=== PATIENT | female | born 1975 | race Caucasian/White ===

== ENCOUNTER 2021-02-16 16:13 | Inpatient (IN) ==
[2021-02-16 16:56] LABS: Basophils % 0.1 %; Eosinophils % 0.1 %; Hematocrit 18.8 % (35.3-44.9); Hemoglobin 6.2 g/dL (11.5-15.4); Immature Granulocytes % 0.7 % (0-4); Lymphocytes % 10.2 %; Mean Corpuscular Hemoglobin 34.4 pg (28.0-33.3); Mean Corpuscular Volume 104.4 fL (83.0-100.0); Mean Platelet Volume 10.6 fL (9.4-12.4); Monocytes # 0.8 K/mcL (0.0-1.3); Monocytes % 8.1 %; Platelet Count 154 K/mcL (140-400); Red Cell Distribution Width 16.8 % (11.5-14.5); Segmented Neutrophils % 80.8 %
[2021-02-16] MEDS ORDERED: Isovue-370 500 ML BOTTLE IVP ONE (17:05)
[2021-02-16 17:08] LABS: INR 1.4; Prothrombin Time 16.2 Seconds (9.4-12.1)
[2021-02-16 17:11] LABS: Activated Partial Thrombo Time 27.2 Seconds (26.0-36.0)
[2021-02-16 17:30] LABS: Hematocrit 17.5 % (35.3-44.9)
[2021-02-16 17:45] LABS: Alanine Aminotransferase 34 Units/L (7-52); Albumin 3.1 g/dL (3.5-5.7); Albumin/Globulin Ratio 1.1 (1.1-2.2); Alkaline Phosphatase 389 Units/L (34-104); Aspartate Amino Transferase 123 Units/L (13-39); BUN/Creatinine Ratio 9 (6-26); Bilirubin,Direct 5.1 mg/dL (0.0-0.2); Bilirubin,Indirect 3.8 mg/dL (0.0-1.0); Bilirubin,Total 8.9 mg/dL (0.3-1.0); Blood Urea Nitrogen 5 mg/dL (6-20); Calcium 8.5 mg/dL (8.6-10.3); Carbon Dioxide 23 mEq/L (23-29); Chloride 76 mEq/L (98-107); Globulin 2.8 g/dL (2.4-3.5); Glucose 95 mg/dL (70-105); Lipase 73 Units/L (11-82); Osmolality,Calculated 251 (280-300); Potassium 2.4 mEq/L (3.5-5.1); Sodium 122 mEq/L (136-145); Total Protein 5.9 g/dL (6.4-8.9); Troponin I < 0.03 ng/mL (< 0.04); eGFR For African Americans > 60 (> 60); eGFR For Non-African Americans > 60 (> 60)
[2021-02-16 17:48] LABS: Hemoglobin 5.9 g/dL (11.5-15.4)
[2021-02-16] MEDS ORDERED: Magnesium Sulfate 1 GM/102 ML PIGGYBACK IVPB ONE (17:48)
[2021-02-16] MEDS ORDERED: 0.9 % Sodium Chloride 500 ML IVC STA (17:49)
[2021-02-16] MEDS ORDERED: Ondansetron 4 MG/2 ML VIAL IVP ONE (18:05)
[2021-02-16] MEDS ORDERED: 0.9 % Sodium Chloride 250 ML ONE (18:38)
[2021-02-16] MEDS ORDERED: Ondansetron 4 MG/2 ML VIAL IVP PRN (21:04)
[2021-02-16] MEDS ORDERED: Naloxone 0.4 MG/ML INJ IVP PRN (21:04)
[2021-02-16] MEDS ORDERED: *HR* LORazepam 2 MG/ML VIAL IVP PRN ×2 (21:07)
[2021-02-16] MEDS ORDERED: *HR* OxyCODONE Immed Rel 5 MG TABLET PO PRN (21:08)
[2021-02-16] MEDS ORDERED: Ipratropium/Albuterol Neb 3 ML IH PRN (21:08)
[2021-02-16] MEDS ORDERED: *HR* Promethazine 25 MG/ML VIAL IM ONE (22:19)
[2021-02-16 23:16] LABS: Eosinophils % 0.3 %; Immature Granulocytes % 0.8 % (0-4); Red Blood Count 2.37 M/mcL (3.82-4.97)
[2021-02-16 23:18] LABS: Basophils % 0.4 %; Hematocrit 23.4 % (35.3-44.9); Hemoglobin 8.1 g/dL (11.5-15.4); Immature Platelets 9.3 % (1.1-6.1); Lymphocytes # 1.1 K/mcL (0.6-4.6); Lymphocytes % 14.3 %; Mean Corpuscular HGB Conc 34.6 g/dL (31.6-35.5); Mean Corpuscular Hemoglobin 34.2 pg (28.0-33.3); Mean Corpuscular Volume 98.7 fL (83.0-100.0); Mean Platelet Volume 10.8 fL (9.4-12.4); Monocytes # 0.5 K/mcL (0.0-1.3); Monocytes % 6.4 %; Platelet Count 122 K/mcL (140-400); Red Cell Distribution Width 18.3 % (11.5-14.5); Segmented Neutrophils % 77.8 %; White Blood Count 7.7 K/mcL (4.3-11.1)
[2021-02-16] MEDS ORDERED: Potassium Chloride 40 MEQ, Lidocaine 1% 2 ML in 0.9 % Sodium Chloride 500 ML IVPB ONE (23:27)
[2021-02-16 23:38] LABS: BUN/Creatinine Ratio 7 (6-26); Blood Urea Nitrogen 4 mg/dL (6-20); Calcium 8.4 mg/dL (8.6-10.3); Carbon Dioxide 26 mEq/L (23-29); Chloride 82 mEq/L (98-107); Glucose 85 mg/dL (70-105); Osmolality,Calculated 258 (280-300); Potassium 2.9 mEq/L (3.5-5.1); Sodium 126 mEq/L (136-145); eGFR For African Americans > 60 (> 60); eGFR For Non-African Americans > 60 (> 60)
[2021-02-17 03:23] LABS: Basophils % 0.2 %; Eosinophils % 0.3 %; Hematocrit 19.7 % (35.3-44.9); Hemoglobin 6.6 g/dL (11.5-15.4); Immature Granulocytes % 0.7 % (0-4); Lymphocytes # 0.8 K/mcL (0.6-4.6); Lymphocytes % 13.4 %; Mean Corpuscular HGB Conc 33.5 g/dL (31.6-35.5); Mean Corpuscular Volume 101.5 fL (83.0-100.0); Mean Platelet Volume 10.6 fL (9.4-12.4); Monocytes # 0.5 K/mcL (0.0-1.3); Monocytes % 8.1 %; Neutrophils # 4.6 K/mcL (1.6-8.9); Platelet Count 109 K/mcL (140-400); Red Blood Count 1.94 M/mcL (3.82-4.97); Red Cell Distribution Width 19.3 % (11.5-14.5); Segmented Neutrophils % 77.3 %; White Blood Count 5.9 K/mcL (4.3-11.1)
[2021-02-17 03:29] LABS: INR 1.5; Prothrombin Time 17.3 Seconds (9.4-12.1)
[2021-02-17 03:40] LABS: Albumin 2.6 g/dL (3.5-5.7); Albumin/Globulin Ratio 1.1 (1.1-2.2); Bilirubin,Direct 7.1 mg/dL (0.0-0.2); Bilirubin,Indirect 4.5 mg/dL (0.0-1.0); Bilirubin,Total 11.6 mg/dL (0.3-1.0); Globulin 2.3 g/dL (2.4-3.5); Total Protein 4.9 g/dL (6.4-8.9)
[2021-02-17 04:02] LABS: Folate 2.9 ng/mL (3.0-16.0)
[2021-02-17 04:14] LABS: Ferritin 899 ng/mL (10-120); Thyroid Stimulating Hormone 29.673 mcIU/mL (0.340-5.600)
[2021-02-17 04:44] LABS: BUN/Creatinine Ratio 8 (6-26); Blood Urea Nitrogen 4 mg/dL (6-20); Calcium 7.7 mg/dL (8.6-10.3); Carbon Dioxide 25 mEq/L (23-29); Chloride 89 mEq/L (98-107); Glucose 83 mg/dL (70-105); Iron 144 mcg/dL (50-170); Magnesium 1.7 mg/dL (1.6-2.6); Osmolality,Calculated 264 (280-300); Potassium 3.5 mEq/L (3.5-5.1); Sodium 129 mEq/L (136-145); eGFR For African Americans > 60 (> 60); eGFR For Non-African Americans > 60 (> 60)
[2021-02-17] MEDS ORDERED: 0.9 % Sodium Chloride 250 ML ONE (05:08)
[2021-02-17 05:39] LABS: % Iron Saturation 87 % (15-50); Transferrin 118 mg/dL (203-362)
[2021-02-17] MEDS ORDERED: Levothyroxine Sodium 100 MCG VIAL IVP ONE (08:14)
[2021-02-17] MEDS: Pantoprazole 40 MG VIAL IVP SCH ×2 (12:01→20:15)
[2021-02-17 13:45] LABS: Hematocrit 24.7 % (35.3-44.9); Hemoglobin 8.7 g/dL (11.5-15.4)
[2021-02-17] MEDS: Piperacillin/Tazobactam 3.375 GM in 0.9 % Sodium Chloride Mini Bag 100 ML IVPB SCH (18:26)
[2021-02-17] MEDS: Thiamine (B-1) 100 MG, Folic Acid 1 MG, MVI, adult with vitamin K 10 ML in 0.9 % Sodi... IVPB SCH (18:32)
[2021-02-18] MEDS: Piperacillin/Tazobactam 3.375 GM in 0.9 % Sodium Chloride Mini Bag 100 ML IVPB SCH ×3 (00:09→18:49)
[2021-02-18 03:42] LABS: Basophils % 0.7 %; Eosinophils % 0.9 %; Hematocrit 21.3 % (35.3-44.9); Hemoglobin 7.5 g/dL (11.5-15.4); Immature Granulocytes % 0.7 % (0-4); Lymphocytes % 27.8 %; Mean Corpuscular HGB Conc 35.2 g/dL (31.6-35.5); Mean Corpuscular Hemoglobin 34.1 pg (28.0-33.3); Mean Corpuscular Volume 96.8 fL (83.0-100.0); Mean Platelet Volume 10.3 fL (9.4-12.4); Monocytes # 0.3 K/mcL (0.0-1.3); Monocytes % 7.2 %; Neutrophils # 2.8 K/mcL (1.6-8.9); Platelet Count 106 K/mcL (140-400); Segmented Neutrophils % 62.7 %; White Blood Count 4.5 K/mcL (4.3-11.1)
[2021-02-18 03:44] LABS: VBG Ionized Calcium 1.06 mmol/L (1.15-1.35)
[2021-02-18 04:00] LABS: Alanine Aminotransferase 26 Units/L (7-52); Albumin 2.4 g/dL (3.5-5.7); Alkaline Phosphatase 277 Units/L (34-104); Aspartate Amino Transferase 93 Units/L (13-39); BUN/Creatinine Ratio 12 (6-26); Bilirubin,Total 7.9 mg/dL (0.3-1.0); Blood Urea Nitrogen 5 mg/dL (6-20); Calcium 7.5 mg/dL (8.6-10.3); Carbon Dioxide 29 mEq/L (23-29); Chloride 95 mEq/L (98-107); Globulin 2.3 g/dL (2.4-3.5); Glucose 76 mg/dL (70-105); Magnesium 1.7 mg/dL (1.6-2.6); Osmolality,Calculated 274 (280-300); Potassium 3.1 mEq/L (3.5-5.1); Sodium 134 mEq/L (136-145); Total Protein 4.7 g/dL (6.4-8.9); eGFR For African Americans > 60 (> 60); eGFR For Non-African Americans > 60 (> 60)
[2021-02-18 04:09] LABS: Lymphocytes # 1.3 K/mcL (0.6-4.6)
[2021-02-18 04:46] LABS: Large Platelets Present (Not Present); Platelet Estimate Slight Decrease (Normal); Smudge Cells Present (Not Present)
[2021-02-18] MEDS: Levothyroxine 25 MCG TABLET PO SCH (05:39)
[2021-02-18] MEDS ORDERED: Calcium Gluconate 1gm/50mL 1 GM/50 ML BAG IVPB ONE (07:37)
[2021-02-18] MEDS: Magnesium Oxide 400 MG TABLET PO SCH (08:47)
[2021-02-18] MEDS: Folic Acid 1 MG TABLET PO SCH (08:47)
[2021-02-18] MEDS: Pantoprazole 40 MG VIAL IVP SCH ×2 (08:49→20:53)
[2021-02-18 12:28] LABS: Thyroid Stimulating Hormone 31.879 mcIU/mL (0.340-5.600)
[2021-02-18 14:24] LABS: Hematocrit 27.1 % (35.3-44.9); Hemoglobin 8.7 g/dL (11.5-15.4)
[2021-02-18 17:35] LABS: Adenovirus F 40/41 PCR Not detected (Not detect); Astrovirus PCR Not detected (Not detect); C.difficile Toxin A/B Gene PCR Not detected (Not detect); Campylobacter by PCR Not detected (Not detect); Cryptosporidium by PCR Not detected (Not detect); Cyclospora cayetanensis PCR Not detected (Not detect); E. coli O157 by PCR Not detected (Not detect); Entamoeba histolytica PCR Not detected (Not detect); Enteroaggregative E.coli(EAEC) Not detected (Not detect); Enteropathogenic E.coli(EPEC) Not detected (Not detect); Enterotoxigenic E.coli (ETEC) Not detected (Not detect); Giardia lamblia PCR Not detected (Not detect); Norovirus GI/GII PCR Not detected (Not detect); Plesiomonas shigelloides PCR Not detected (Not detect); Rotavirus A PCR Not detected (Not detect); Salmonella PCR Not detected (Not detect); Sapovirus PCR Not detected (Not detect); Shig/EnteroinvasiveE coli EIEC Not detected (Not detect); Shigalike tox-prod E coli STEC Not detected (Not detect); Vibrio PCR Not detected (Not detect); Vibrio cholerae PCR Not detected (Not detect); Yersinia enterocolitica PCR Not detected (Not detect)
[2021-02-18] MEDS: Thiamine (B-1) 100 MG, Folic Acid 1 MG, MVI, adult with vitamin K 10 ML in 0.9 % Sodi... IVPB SCH (18:48)
[2021-02-18] MEDS: Lactobacillus 1 EACH CAP.SPRINK PO SCH (20:53)
[2021-02-19] MEDS: Piperacillin/Tazobactam 3.375 GM in 0.9 % Sodium Chloride Mini Bag 100 ML IVPB SCH ×3 (01:38→16:55)
[2021-02-19 02:32] LABS: VBG Ionized Calcium 1.08 mmol/L (1.15-1.35)
[2021-02-19 02:43] LABS: Basophils % 0.7 %; Eosinophils % 0.9 %; Hematocrit 21.2 % (35.3-44.9); Immature Granulocytes % 0.7 % (0-4); Immature Platelets 5.9 % (1.1-6.1); Lymphocytes # 1.3 K/mcL (0.6-4.6); Mean Corpuscular Hemoglobin 32.7 pg (28.0-33.3); Mean Corpuscular Volume 99.1 fL (83.0-100.0); Mean Platelet Volume 10.2 fL (9.4-12.4); Monocytes # 0.4 K/mcL (0.0-1.3); Neutrophils # 2.7 K/mcL (1.6-8.9); Platelet Count 114 K/mcL (140-400); Red Blood Count 2.14 M/mcL (3.82-4.97); Red Cell Distribution Width 19.7 % (11.5-14.5); Segmented Neutrophils % 60.7 %; White Blood Count 4.5 K/mcL (4.3-11.1)
[2021-02-19 02:52] LABS: Alanine Aminotransferase 27 Units/L (7-52); Albumin 2.4 g/dL (3.5-5.7); Albumin/Globulin Ratio 1.1 (1.1-2.2); Alkaline Phosphatase 251 Units/L (34-104); Aspartate Amino Transferase 108 Units/L (13-39); BUN/Creatinine Ratio 10 (6-26); Bilirubin,Total 6.1 mg/dL (0.3-1.0); Blood Urea Nitrogen 4 mg/dL (6-20); Calcium 7.4 mg/dL (8.6-10.3); Carbon Dioxide 30 mEq/L (23-29); Chloride 96 mEq/L (98-107); Globulin 2.2 g/dL (2.4-3.5); Glucose 77 mg/dL (70-105); Magnesium 1.9 mg/dL (1.6-2.6); Osmolality,Calculated 270 (280-300); Potassium 3.2 mEq/L (3.5-5.1); Sodium 132 mEq/L (136-145); Total Protein 4.6 g/dL (6.4-8.9); eGFR For African Americans > 60 (> 60); eGFR For Non-African Americans > 60 (> 60)
[2021-02-19 03:16] LABS: Platelet Estimate Slight Decrease (Normal); Reactive Lymphocytes Present (Not Present)
[2021-02-19] MEDS: Levothyroxine 25 MCG TABLET PO SCH (05:27)
[2021-02-19] MEDS ORDERED: Calcium Gluconate 1gm/50mL 1 GM/50 ML BAG IVPB ONE (07:26)
[2021-02-19] MEDS: Lactobacillus 1 EACH CAP.SPRINK PO SCH ×2 (08:35→20:29)
[2021-02-19] MEDS: Magnesium Oxide 400 MG TABLET PO SCH (08:35)
[2021-02-19] MEDS: Folic Acid 1 MG TABLET PO SCH (08:36)
[2021-02-19] MEDS: Pantoprazole 40 MG VIAL IVP SCH ×2 (08:47→20:30)
[2021-02-19 12:54] LABS: Source of Body Fluid PERITONEAL
[2021-02-19 13:25] LABS: Bacteria,Urine Few per hpf (None-Few); Bilirubin,Urine Moderate (Negative); Blood,Urine Negative (Negative); Clarity,Urine Clear (Clear); Color,Urine Dark-Yellow (Yellow); Glucose,Urine (UA) Normal (Normal); Ketones,Urine 10 mg/dL (Negative); Leukocyte Esterase,Urine Negative (Negative); Nitrite,Urine Negative (Negative); Protein,Urine 30 mg/dL (Neg-Trace); RBC,Urine 0-3 per hpf (0-3); Specific Gravity,Urine > 1.030 (1.010-1.025); Squamous Epithelial Cell,Urine Few per hpf (None-Few); Urobilinogen,Urine Normal (Normal)
[2021-02-19 15:26] LABS: Appearance of Body Fluid Hazy (Clear); Volume of Body Fluid 60 mL
[2021-02-19] MEDS: Thiamine (B-1) 100 MG, Folic Acid 1 MG, MVI, adult with vitamin K 10 ML in 0.9 % Sodi... IVPB SCH (17:29)
[2021-02-19] MEDS ORDERED: EPHEDrine 50 MG/ML VIAL IVP ONE (18:13)
[2021-02-19] MEDS ORDERED: *HR* Propofol 500 MG/50 ML BOTTLE IVP ONE (18:13)
[2021-02-19] MEDS ORDERED: Lidocaine -MPF 2% 5 ML VIAL SQ ONE (18:13)
[2021-02-20] MEDS: Piperacillin/Tazobactam 3.375 GM in 0.9 % Sodium Chloride Mini Bag 100 ML IVPB SCH ×2 (00:51→09:44)
[2021-02-20 05:09] LABS: VBG Ionized Calcium 1.04 mmol/L (1.15-1.35)
[2021-02-20 05:29] LABS: Basophils # 0.1 K/mcL (0.0-0.2); Basophils % 1.1 %; Eosinophils % 0.7 %; Hematocrit 23.5 % (35.3-44.9); Hemoglobin 7.7 g/dL (11.5-15.4); Immature Granulocytes % 1.5 % (0-4); Lymphocytes # 1.5 K/mcL (0.6-4.6); Lymphocytes % 26.9 %; Mean Corpuscular HGB Conc 32.8 g/dL (31.6-35.5); Mean Corpuscular Hemoglobin 32.8 pg (28.0-33.3); Mean Platelet Volume 10.6 fL (9.4-12.4); Monocytes # 0.5 K/mcL (0.0-1.3); Neutrophils # 3.3 K/mcL (1.6-8.9); Platelet Count 134 K/mcL (140-400); Red Blood Count 2.35 M/mcL (3.82-4.97); Red Cell Distribution Width 19.6 % (11.5-14.5); Segmented Neutrophils % 60.8 %; White Blood Count 5.5 K/mcL (4.3-11.1)
[2021-02-20 05:40] LABS: Alanine Aminotransferase 32 Units/L (7-52); Albumin 2.5 g/dL (3.5-5.7); Albumin/Globulin Ratio 1.1 (1.1-2.2); Alkaline Phosphatase 282 Units/L (34-104); Aspartate Amino Transferase 127 Units/L (13-39); BUN/Creatinine Ratio 9 (6-26); Blood Urea Nitrogen 5 mg/dL (6-20); Calcium 7.6 mg/dL (8.6-10.3); Carbon Dioxide 28 mEq/L (23-29); Chloride 98 mEq/L (98-107); Globulin 2.3 g/dL (2.4-3.5); Glucose 107 mg/dL (70-105); Osmolality,Calculated 270 (280-300); Potassium 3.7 mEq/L (3.5-5.1); Sodium 131 mEq/L (136-145); Total Protein 4.8 g/dL (6.4-8.9); eGFR For African Americans > 60 (> 60); eGFR For Non-African Americans > 60 (> 60)
[2021-02-20] MEDS: Levothyroxine 25 MCG TABLET PO SCH (05:52)
[2021-02-20] MEDS ORDERED: Calcium Gluconate 1gm/50mL 1 GM/50 ML BAG IVPB ONE (07:32)
[2021-02-20 07:47] VITALS: BP 103/76
[2021-02-20] MEDS: Lactobacillus 1 EACH CAP.SPRINK PO SCH (09:43)
[2021-02-20] MEDS: Magnesium Oxide 400 MG TABLET PO SCH (09:44)
[2021-02-20] MEDS: Folic Acid 1 MG TABLET PO SCH (09:44)
[2021-02-20] MEDS: Pantoprazole 40 MG VIAL IVP SCH (09:45)
[2021-02-20 11:46] VITALS: PULSE 92; TEMP 97.9; O2SAT 97
[2021-02-20] MEDS ORDERED: levoFLOXacin 500 MG TABLET PO SCH (16:00)
[2021-02-20 16:52] LABS: Fluid Source for Albumin PERITONEAL/ASC
[2021-02-21 08:37] LABS: Magnesium 1.7 mg/dL (1.6-2.6)
[2021-02-21] MEDS ORDERED: levoFLOXacin 500 MG TABLET PO SCH (09:00)
== END 2021-02-20 18:14 | disposition home or self-care (01) | DRG 377 ==
LOC: EMEROOARM 16:13 → 3ANU 16:13
PROVIDERS: ADMIT Internal Medicine; ATTEND Internal Medicine